=== PATIENT | male | born 1940 | race Caucasian/White ===

== ENCOUNTER → 2016-09-25 | Outpatient (CLI) | payer MEDICARE, OTHER ==
[~2016-09-25] MED LIST: ASPIRIN LO-DOSE81 MG; CELEXA10 MG PO; COLACE100 MG PO; FEOSOL325 MG PO; JUICE PLUS VITAMIN PO; K-TAB ER20 MEQ; LEVOTHROID (SY88 MCG PO; LIORESAL10 MG PO; LOVENOX40 MG/0.4 SUB-Q; MIDODRINE HCL5 MG; MIRALAX17 GM PO; PROAMATINE5 MG PO; STALEVO 200 TA1 EACH PO; TYLENOL325 MG PO; VITAMIN D-32000 UNIT PO; ZANTAC (NON-FO150 MG PO
[2016-09-25 14:20] LABS: CREATININE 1.4 mg/dL (0.6-1.3)
== END | disposition disaster alternative care site (69) ==
LOC: GRAD 13:00 → GLAB 13:00 → GRAD 13:37
PROVIDERS: Psychiatry & Neurology Neurology
DX: R26.9 Unspecified abnormalities of gait and mobility (principal); G31.9 Degenerative disease of nervous system, unspecified; M48.02 Spinal stenosis, cervical region; R20.9 Unspecified disturbances of skin sensation

== ENCOUNTER → 2016-12-01 | Outpatient (CLI) | payer MEDICARE, OTHER | END | disposition disaster alternative care site (69) | LOC: GRAD 12:16 | DX: M54.5 Low back pain (principal); M47.896 Other spondylosis, lumbar region; M48.02 Spinal stenosis, cervical region; M48.06 Spinal stenosis, lumbar region; M48.07 Spinal stenosis, lumbosacral region; M25.78 Osteophyte, vertebrae ==